=== PATIENT | female | born 1935 | race Caucasian/White ===

== ENCOUNTER 2018-02-16 18:31 | Emergency (ER) | payer OTHER, MEDICARE ==
[~2018-02-16] VITALS: Ht 160 cm; Wt 72.6 kg
[~2018-02-16 18:31] MED LIST: ASPIRIN EC81 M1; CALCIUM 1,0001 EACH; MECLIZINE 25 MG25 M1 PO; PROPRANOLOL 4040 M1; RANITIDINE HCL300 M1; SIMVASTATIN20 MG; ZOFRAN ODT4 MG PO
[2018-02-16] MEDS ORDERED: VALIUM5 MG PO (19:01)
[2018-02-16] MEDS ORDERED: MOTION SICKNESS25 M1 PO (19:01)
[2018-02-16] MEDS ORDERED: ZOCOR20 MG PO (19:01)
[2018-02-16] MEDS ORDERED: NYSTATIN-TRIAMC15 GM TOP (19:02)
[2018-02-16] MEDS ORDERED: ZANTAC 150MG T150 MG PO (19:02)
[2018-02-16] MEDS ORDERED: CALCIUM500 MG PO (19:02)
[2018-02-16] MEDS ORDERED: VITAMIN D3400 UNIT PO (19:02)
[2018-02-16] MEDS ORDERED: OSPHENA60 MG PO (19:03)
[2018-02-16 19:32] LABS: URINE BILIRUBIN NEGATIVE (Negative); URINE BLOOD 2+ (Negative); URINE CLARITY CLOUDY; URINE COLOR YELLOW; URINE GLUCOSE-RANDOM* NEGATIVE (Negative); URINE KETONES NEGATIVE (Negative); URINE PROTEIN (DIPSTICK) TRACE (Negative); URINE SPECIFIC GRAVITY >= 1.030 (1.005-1.035); URINE UROBILINOGEN 0.2 E.U./dl (0.2-1.0)
[2018-02-16 19:35] LABS: URINE LEUKOCYTES-REFLEX 3+ (Negative); URINE NITRITE-REFLEX POSITIVE (Negative)
[2018-02-16 19:35] LABS: ABSOLUTE NEUTROPHILS 10.7 thou/uL (1.4-8.2); BASOPHILS 0.2 % (0.0-2.0); HEMATOCRIT 49.9 % (37.0-47.0); HEMOGLOBIN 17.3 gm/dL (12.0-15.0); LYMPHOCYTES 2.8 % (24.0-44.0); MCH 32.6 pg (26.0-34.0); MCHC 34.6 g/dL (28.0-37.0); MCV 94.3 fL (80.0-100.0); MONOCYTES 3.1 % (1.0-8.0); PLATELET COUNT 138 thou/uL (150-400); POLYS 92.9 % (36.0-66.0); RBC 5.29 mil/uL (4.20-5.00); RDW 13.1 % (10.5-14.5); WBC 11.5 thou/uL (4.0-11.0)
[2018-02-16 19:38] LABS: BACTERIA-REFLEX >30 Many /HPF (None Seen); URINE WBC-REFLEX >25 Many /HPF (0-5)
[2018-02-16 19:39] LABS: CASTS None Seen /LPF (None Seen); CRYSTALS None Seen /LPF (None Seen); SQUAMOUS None Seen /LPF (0-3); URINE RBC 3-10 Few /HPF (0-2)
[2018-02-16 19:40] LABS: CALCIUM 9.8 mg/dL (8.5-10.1); CREATININE 1.2 mg/dL (0.6-1.0); POTASSIUM 4.4 mmol/L (3.5-5.1)
[2018-02-16 19:45] LABS: ALBUMIN 4.2 g/dL (3.4-5.0); DIRECT BILIRUBIN 0.2 mg/dL (<0.1-0.3); TOTAL BILIRUBIN 1.2 mg/dL (<0.1-1.0); TOTAL PROTEIN 8.3 g/dL (6.4-8.2)
[2018-02-16] MEDS ORDERED: ZOFRAN ODT4 MG PO (21:04)
[2018-02-16] MEDS ORDERED: KEFLEX500 M1 PO (21:04)
[2018-02-16 21:22] VITALS: BP 126/54
== END 2018-02-16 21:32 | disposition home or self-care (01) ==
LOC: ER 18:31
PROVIDERS: Emergency Medicine
DX: N39.0 Urinary tract infection, site not specified (principal); R19.7 Diarrhea, unspecified; I10 Essential (primary) hypertension; E78.5 Hyperlipidemia, unspecified; Z88.1 Allergy status to other antibiotic agents

== ENCOUNTER 2020-07-07 14:38 | Emergency (ER) | payer OTHER, MEDICARE ==
[~2020-07-07] VITALS: Ht 160 cm; Wt 71.2 kg
[~2020-07-07 14:38] MED LIST changes: +CALCIUM500 MG PO; +KEFLEX500 M1 PO; +MOTION SICKNESS25 M1 PO; +NYSTATIN-TRIAMC15 GM TOP; +OSPHENA60 MG PO; +VALIUM5 MG PO; +VITAMIN D3400 UNIT PO; +ZANTAC 150MG T150 MG PO; +ZOCOR20 MG PO
[2020-07-07] MEDS ORDERED: TIZANIDINE HCL 22 M1 PO (16:43)
[2020-07-07 16:54] VITALS: BP 140/76
== END 2020-07-07 16:54 | disposition home or self-care (01) ==
LOC: ER 14:38
DX: S16.1XXA Strain of muscle, fascia and tendon at neck level, initial encounter (principal); I10 Essential (primary) hypertension; E78.5 Hyperlipidemia, unspecified; K21.9 Gastro-esophageal reflux disease without esophagitis; Z90.89 Acquired absence of other organs; Z90.710 Acquired absence of both cervix and uterus; Z79.82 Long term (current) use of aspirin; Z79.899 Other long term (current) drug therapy; Z88.1 Allergy status to other antibiotic agents; Z88.8 Allergy status to other drugs, medicaments and biological substances; X58.XXXA Exposure to other specified factors, initial encounter; Y93.89 Activity, other specified; Y92.89 Other specified places as the place of occurrence of the external cause; Y99.8 Other external cause status